=== PATIENT | female | born 1940 | race Caucasian/White ===

== ENCOUNTER 2021-07-17 08:45 | Outpatient (REF) | payer OTHER, SELFPAY ==
[2021-07-17 10:35] LABS: MANUAL DIFF FLAG NO
[2021-07-17 10:41] LABS: Basophils Absolute Auto 0.1 X10*3/uL (0.0-0.2); Basophils Percent Auto 0.8 % (0-2); Eosinophils Absolute Auto 0.4 X10*3/uL (0.0-0.4); Eosinophils Percent Auto 5.3 % (0-4); Hematocrit 39.7 % (37.0-47.0); Imm Gran Abs Auto 0.02 X10*3/uL (0.00-0.03); Imm Gran Pct Auto 0.3 % (0.0-0.4); Lymphocytes Absolute Auto 2.9 X10*3/uL (1.2-4.9); Lymphocytes Percent Auto 37.5 % (20-40); Mean Corpuscular HGB Conc 32.7 g/dl (31.0-35.0); Mean Corpuscular Hemoglobin 30.1 pg (27.0-33.0); Mean Corpuscular Volume 91.9 fL (80.0-98.0); Mean Platelet Volume 9.7 fL (9.4-12.3); Monocytes Absolute Auto 0.7 X10*3/uL (0.1-1.2); Monocytes Percent Auto 8.7 % (2-11); Neutrophils Absolute Auto 3.7 x10*3/uL (2.0-8.3); Neutrophils Percent Auto 47.4 % (45-73); Platelet Count 315 X10*3/uL (160-400); Red Blood Count 4.32 X10*6/uL (4.20-5.50); Red Cell Distribution Width 13.1 % (11.0-16.0); White Blood Count 7.7 X10*3/uL (4.8-10.8)
[2021-07-17 10:44] LABS: Appearance Urine CLEAR; Color Urine YELLOW; Glucose Urine UA NEG (NEG); Leukocyte Esterase Urine TRACE (NEG); Nitrite Urine NEG (NEG); Specific Gravity - Urine 1.015 (1.005-1.025); Urine Blood NEG (NEG); Urine Ketones NEG (NEG); Urine Protein NEG (NEG-TRACE)
[2021-07-17 10:55] LABS: Alanine Aminotransferase 14 U/L (0-31); Alkaline Phosphatase 63 U/L (39-117); Anion Gap 13 (12-20); Aspartate Amino Transferase 14 U/L (5-31); Blood Urea Nitrogen 9 mg/dL (9-16); Calcium 9.5 mg/dL (8.4-10.2); Carbon Dioxide 25 mmol/L (22-29); Chloride 106 mmol/L (96-108); Cholesterol 188 mg/dL; Estimated Glomerular Filt Rate > 60; Glucose Fasting 98 mg/dL (60-99); HDL Cholesterol 58 mg/dL; LDL Cholesterol Calculated 114 mg/dl; Potassium 4.2 mmol/L (3.3-5.1); Sodium 140 mmol/L (135-145); Squamous Epithelial Cell Urine 1+ /LPF; Total Protein 6.9 g/dL (6.5-8.0); Triglycerides 81 mg/dL
[2021-07-17 10:58] LABS: RBC Urine 0-2 /HPF (0); Renal Epithelial Cells Urine TRACE /LPF; WBC Urine 0-2 /HPF (0-4)
[2021-07-17 11:18] LABS: TSH reflex Free T4 0.32 uIU/mL (0.32-4.0)
== END 2021-07-17 08:46 | disposition home or self-care (01) ==
LOC: HO.WFDLDS 08:45
PROVIDERS: Visit Provider Family Medicine
DX: Z00.00 Encounter for general adult medical examination without abnormal findings (principal); Z13.220 Encounter for screening for lipoid disorders; Z13.29 Encounter for screening for other suspected endocrine disorder
CPT/HCPCS: 36415; 80053; 80061; 81001; 84443; 85025

== ENCOUNTER 2021-10-27 10:03 | Outpatient (REF) | payer OTHER, SELFPAY ==
[2021-10-27 11:21] LABS: MANUAL DIFF FLAG NO
[2021-10-27 11:30] LABS: Basophils Absolute Auto 0.1 X10*3/uL (0.0-0.2); Basophils Percent Auto 0.7 % (0-2); Eosinophils Absolute Auto 0.5 X10*3/uL (0.0-0.4); Eosinophils Percent Auto 5.3 % (0-4); Hematocrit 38.6 % (37.0-47.0); Hemoglobin 12.5 g/dl (12.0-16.0); Imm Gran Abs Auto 0.02 X10*3/uL (0.00-0.03); Imm Gran Pct Auto 0.2 % (0.0-0.4); Lymphocytes Absolute Auto 2.9 X10*3/uL (1.2-4.9); Lymphocytes Percent Auto 34.1 % (20-40); Mean Corpuscular HGB Conc 32.4 g/dl (31.0-35.0); Mean Corpuscular Hemoglobin 30.2 pg (27.0-33.0); Mean Corpuscular Volume 93.2 fL (80.0-98.0); Mean Platelet Volume 9.5 fL (9.4-12.3); Monocytes Absolute Auto 0.7 X10*3/uL (0.1-1.2); Neutrophils Absolute Auto 4.4 x10*3/uL (2.0-8.3); Neutrophils Percent Auto 51.7 % (45-73); Platelet Count 298 X10*3/uL (160-400); Red Blood Count 4.14 X10*6/uL (4.20-5.50); Red Cell Distribution Width 13.3 % (11.0-16.0); White Blood Count 8.5 X10*3/uL (4.8-10.8)
[2021-10-27 12:15] LABS: Alanine Aminotransferase 15 U/L (0-31); Albumin Level 3.9 g/dL (3.5-5.0); Alkaline Phosphatase 72 U/L (39-117); Anion Gap 15 (12-20); Aspartate Amino Transferase 15 U/L (5-31); Bilirubin Total 1.1 mg/dL (0.0-1.0); Blood Urea Nitrogen 14 mg/dL (9-16); Calcium 9.1 mg/dL (8.4-10.2); Carbon Dioxide 27 mmol/L (22-29); Chloride 106 mmol/L (96-108); Estimated Glomerular Filt Rate > 60; Glucose Random 94 mg/dL (60-115); Potassium 4.4 mmol/L (3.3-5.1); Sodium 144 mmol/L (135-145); Total Protein 6.6 g/dL (6.5-8.0)
[2021-10-27 12:22] LABS: Thyroid Stimulating Hormone 0.21 uIU/mL (0.32-4.0)
[2021-10-29 02:08] LABS: Triiodothyronine T3 Total 140 ng/dL (76-181)
== END 2021-10-27 10:04 | disposition home or self-care (01) ==
LOC: HO.WFDLDS 10:03
PROVIDERS: Visit Provider Family Medicine
DX: Z00.00 Encounter for general adult medical examination without abnormal findings (principal); E03.9 Hypothyroidism, unspecified; R53.83 Other fatigue
CPT/HCPCS: 36415; 80053; 84439; 84443; 84480; 85025

== ENCOUNTER 2021-11-07 09:08 | Outpatient (REF) | payer OTHER, SELFPAY ==
[2021-11-07 12:01] LABS: Anion Gap 14 (12-20); Blood Urea Nitrogen 9 mg/dL (9-16); Calcium 9.1 mg/dL (8.4-10.2); Carbon Dioxide 28 mmol/L (22-29); Chloride 107 mmol/L (96-108); Estimated Glomerular Filt Rate > 60; Glucose Random 95 mg/dL (60-115); Sodium 145 mmol/L (135-145)
[2021-11-07 12:10] LABS: Thyroid Stimulating Hormone 0.19 uIU/mL (0.32-4.0)
[2021-11-07 12:16] LABS: Folate 6.8 ng/mL (> or = 4.0); Vitamin B12 417 pg/mL (200-900)
[2021-11-07 12:44] LABS: T4 Thyroxine 8.9 ug/dL (4.5-12.0)
== END 2021-11-07 09:09 | disposition home or self-care (01) ==
LOC: HO.WFDLDS 09:08
PROVIDERS: Visit Provider Psychiatry & Neurology Neurology
DX: G31.84 Mild cognitive impairment of uncertain or unknown etiology (principal)
CPT/HCPCS: 36415; 80048; 82607; 82746; 84436; 84443

== ENCOUNTER 2021-12-03 09:24 | Outpatient (REF) | payer OTHER, SELFPAY ==
--- NOTE | ~2021-12-03 | MR_ITS ---
EXAMINATION: MR OF THE BRAIN WITHOUT CONTRAST CLINICAL INFORMATION: 81-year-old with history of CVA; self-reported head tremor when looking to left. Possible seizure. COMPARISON: None. TECHNIQUE: Multiplanar multisequence MR imaging of the brain was done without IV contrast. FINDINGS: Brain Volume: [id number] generalized diffuse parenchymal volume loss within the limitations of qualitative assessment. Structural: No malformations. Brain and Meninges: DWI sequence demonstrates no restricted diffusion to suggest acute or subacute cerebral ischemia. Scattered patchy and confluent zones of FLAIR/T2 signal hyperintensity within the subcortical and deeper periventricular white matter of both cerebral hemispheres with mild deep white matter T1 hypointensity, which are nonspecific findings but could reflect chronic ischemic microangiopathy in a patient of this age. There is a remote lacunar infarct in the ventromedial thalamus. Gradient refocused imaging demonstrates no abnormal magnetic susceptibility artifact to suggest hemorrhage, hemosiderin staining or abnormal mineralization. There is a tiny remote infarct in the left cerebellar hemisphere. Punctate T2 hyperintensity in the left cerebellar hemispheric white matter also noted, likely reflecting minimal chronic ischemic microangiopathy. Mildly prominent perivascular spaces at the level of the basal ganglia and subinsular regions bilaterally are noted. The mesial temporal lobe structures are bilaterally symmetric and are normal in signal intensity. Slight T2 hyperintensity noted in the thalami bilaterally suggesting chronic ischemic changes. No extra-axial fluid collections, significant space-occupying process or mass effect are identified. There is T2 hyperintensity along the callososeptal interface of the corpus callosum and along the deep surface of the splenium, which is likely reflective of chronic ischemic change. Ventricles and Subarachnoid Spaces: The ventricular system and subarachnoid spaces are consistent with generalized volume loss without hydrocephalus. Orbital Structures: The visualized orbital structures are grossly unremarkable within the limitations of the study. Vascular: Signal voids are noted in the visualized major intracranial vessels. Osseous Structures, Sinuses/Mastoids, Extracranial Soft Tissues: Unremarkable. MR/MR head/brain wo con IMPRESSION: 1. 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 2. No evidence for acute or subacute infarct, hemorrhage, extra-axial fluid collection, space-occupying process, mass effect or hydrocephalus. 3. Mild to moderate generalized diffuse brain parenchymal volume loss with prominence of the perivascular spaces in the deep white matter and basal ganglia bilaterally.
== END 2021-12-03 09:25 | disposition home or self-care (01) ==
LOC: HO.MRI 09:24
PROVIDERS: Visit Provider Psychiatry & Neurology Neurology
DX: I63.9 Cerebral infarction, unspecified (principal); R56.9 Unspecified convulsions
CPT/HCPCS: 70551

== ENCOUNTER 2022-02-23 12:48 | Outpatient (REF) | payer OTHER, SELFPAY ==
[2022-02-23 14:57] LABS: Free T4 (Free Thyroxine) 1.07 ng/dL (0.71-1.85); Thyroid Stimulating Hormone 0.11 uIU/mL (0.32-4.0)
[2022-02-25 13:08] LABS: Thyroid Peroxidase Antibodies <1 IU/mL (<9)
[2022-02-25 22:09] LABS: Triiodothyronine T3 Total 129 ng/dL (76-181)
== END 2022-02-23 12:49 | disposition home or self-care (01) ==
LOC: HO.WFDLDS 12:48
PROVIDERS: Visit Provider Family Medicine
DX: E03.9 Hypothyroidism, unspecified (principal); R79.89 Other specified abnormal findings of blood chemistry
CPT/HCPCS: 36415; 84439; 84443; 84480; 86376

== ENCOUNTER 2022-07-13 11:41 | Outpatient (REF) | payer OTHER, SELFPAY ==
[2022-07-13 14:56] LABS: Anion Gap 11 (12-20); Blood Urea Nitrogen 13 mg/dL (9-16); Calcium 9.1 mg/dL (8.4-10.2); Carbon Dioxide 27 mmol/L (22-29); Chloride 105 mmol/L (96-108); Estimated Glomerular Filt Rate > 60; Glucose Random 119 mg/dL (60-115); Potassium 4.3 mmol/L (3.3-5.1); Sodium 139 mmol/L (135-145)
[2022-07-13 15:18] LABS: Free T4 (Free Thyroxine) 1.01 ng/dL (0.71-1.85); Thyroid Stimulating Hormone 0.11 uIU/mL (0.32-4.0)
[2022-07-15 07:34] LABS: Triiodothyronine T3 Total 111 ng/dL (76-181)
== END 2022-07-13 11:42 | disposition home or self-care (01) ==
LOC: HO.WFDLDS 11:41
PROVIDERS: Visit Provider Family Medicine
DX: Z00.00 Encounter for general adult medical examination without abnormal findings (principal); E05.90 Thyrotoxicosis, unspecified without thyrotoxic crisis or storm; E03.9 Hypothyroidism, unspecified
CPT/HCPCS: 36415; 80048; 84439; 84443; 84480

== ENCOUNTER 2022-09-24 09:07 | Outpatient (REF) | payer OTHER, SELFPAY ==
[2022-09-24 11:33] LABS: MANUAL DIFF FLAG NO
[2022-09-24 11:54] LABS: Basophils Absolute Auto 0.1 X10*3/uL (0.0-0.2); Basophils Percent Auto 0.6 % (0-2); Eosinophils Absolute Auto 0.5 X10*3/uL (0.0-0.4); Eosinophils Percent Auto 5.1 % (0-4); Hematocrit 37.1 % (37.0-47.0); Imm Gran Abs Auto 0.03 X10*3/uL (0.00-0.03); Imm Gran Pct Auto 0.3 % (0.0-0.4); Lymphocytes Absolute Auto 3.5 X10*3/uL (1.2-4.9); Lymphocytes Percent Auto 37.5 % (20-40); Mean Corpuscular HGB Conc 32.3 g/dl (31.0-35.0); Mean Corpuscular Hemoglobin 29.9 pg (27.0-33.0); Mean Corpuscular Volume 92.5 fL (80.0-98.0); Mean Platelet Volume 9.4 fL (9.4-12.3); Monocytes Absolute Auto 0.8 X10*3/uL (0.1-1.2); Monocytes Percent Auto 8.1 % (2-11); Neutrophils Absolute Auto 4.5 x10*3/uL (2.0-8.3); Neutrophils Percent Auto 48.4 % (45-73); Platelet Count 320 X10*3/uL (160-400); Red Blood Count 4.01 X10*6/uL (4.20-5.50); Red Cell Distribution Width 13.5 % (11.0-16.0); White Blood Count 9.3 X10*3/uL (4.8-10.8)
[2022-09-24 14:11] LABS: Alanine Aminotransferase 13 U/L (0-31); Albumin Level 3.6 g/dL (3.5-5.0); Alkaline Phosphatase 73 U/L (39-117); Anion Gap 12 (12-20); Aspartate Amino Transferase 14 U/L (5-31); Bilirubin Total 0.7 mg/dL (0.0-1.0); Blood Urea Nitrogen 9 mg/dL (9-16); Calcium 9.3 mg/dL (8.4-10.2); Carbon Dioxide 27 mmol/L (22-29); Chloride 106 mmol/L (96-108); Cholesterol 129 mg/dL; Estimated Glomerular Filt Rate > 60; Glucose Random 89 mg/dL (60-115); HDL Cholesterol 58 mg/dL; LDL Cholesterol Calculated 60 mg/dl; Potassium 3.9 mmol/L (3.3-5.1); Sodium 141 mmol/L (135-145); Total Protein 6.4 g/dL (6.5-8.0); Triglycerides 56 mg/dL
[2022-09-26 08:13] LABS: LDL Cholesterol Direct 57 mg/dL (<100)
== END 2022-09-24 09:08 | disposition home or self-care (01) ==
LOC: HO.WFDLDS 09:07
PROVIDERS: Visit Provider Family Medicine
DX: Z00.00 Encounter for general adult medical examination without abnormal findings (principal); E05.90 Thyrotoxicosis, unspecified without thyrotoxic crisis or storm
CPT/HCPCS: 36415; 80053; 80061; 83721; 85025

== ENCOUNTER 2022-10-02 10:40 | Outpatient (AMB) | payer OTHER, SELFPAY ==
--- NOTE | 2022-10-02 10:47 | A.OFFPC_ITS ---
Vital Signs 10/02/22 10:57 Height 5 ft 2 in Weight 134 lb 8 oz BMI 24.6 BP 120/64 Blood Pressure Location Lt brachial Position Sitting Respiration 12 Pulse 92 Pulse Source Pulse Oximeter Temp 97.5 F Temp Source Temporal Artery Scan Pulse Oximetry (%) 97 Oxygen Delivery Method Room Air Intake Visit Reasons: CPE with f/u labs and health maintenance Intake Note: Patient would like a referral to get hearing aids. Toy Maker Required: No Accompanied by: Self / Same As Patient Allergies No Known Allergies Allergy (Verified 10/02/22 11:03) Tobacco use date assessed: 05/26/22 Fall risk assessment: No Falls in past year Last assessed Fall Risk: 10/02/22 Dental Screening Dental Screen Date: 10/02/22 Did you have a dental visit in the last 12 months?: Yes Did you have a dental problem in the last 6 months where you did not have access to dental care?: No Was dental information given to patient?: Patient has dentist HPI CPE with f/u labs and health maintenance HPI Details 82 y/o female presents for a CPE with f/u labs and health maintenance. Labs were drawn 09/24/22. Reviewed labs with pt. Triglycerides 56. TC 129. LDL direct 57. She is on artovastatin 20mg daily. HDL 58. TSH 07/13/22 was supressed. Pt states she sees her eye doctor every year. She reports she needs hearing aids - she has not had hearing testing in a long time. [facility] Medical History (Updated 10/02/22 @ 11:40 by Dyllan Lofton) Stroke Surgical History (Updated 10/02/22 @ 11:07 by Melissa Ann MA) No pertinent past surgical history Family History (Updated 10/02/22 @ 11:08 by Melissa Ann MA) Daughter Brain cancer Social History Housing: Apartment Patient Tobacco Use Status: Never used Tobacco e-Cigarette/Vaping Use: Never Used Second Hand Smoke Exposure: No service: No Current occupational status: retired Current occupational exposures/hazards: No Cognitive needs: No Hearing needs: Yes Vision needs: Yes Questionnaire Thrive Questionnaire Date Thrive assessed: 09/10/21 MARIA ELENA-7 AMB Questionnaire MARIA ELENA-7 Date MARIA ELENA - 7 assessed: 02/23/22 Source: Developed by Drs. Caio Payne, Kassie Ontiveros, Jonathon Gonzalez and colleagues, with an educational marsha from [employer]. Review of Systems Const Denies chills, Denies fatigue, Denies fever(s), Denies headache(s) and Denies weakness Eyes Denies change in vision ENT Denies dizziness, Denies headache(s), Denies hearing loss, Denies nasal congestion, Denies sinus pain, Denies sinus pressure and Denies sore throat Card Denies chest pain, Denies lightheadedness, Denies dyspnea and Denies other (palpitations) Resp Denies cough, Denies dyspnea and Denies wheezing GI Denies abdominal pain, Denies melena, Denies hematochezia, Denies change in bowel habits, Denies dyspepsia and Denies nausea Denies hematuria and Denies dysuria Musc Denies abnormal gait, Denies myalgias, Denies arthralgias, Denies numbness and Denies tingling Skin/Breast Denies rash, Denies unusual bruising and Denies wounds Neuro Denies abnormal gait, Denies dizziness, Denies headache(s), Denies memory loss, Denies numbness, Denies Sensory deficit (Neuro), Denies tingling and Denies weakness Psych Denies anxiety, Denies depression and Denies memory loss Endo Denies cold intolerance, Denies fatigue, Denies heat intolerance, Denies polydipsia and Denies polyuria Fredo/Lymph Denies easy bleeding and Denies easy bruising Aller/Immun Denies wheezing Physical exam (Primary Care) Vital Signs: Last Vital Signs Temp 97.5 F 10/02/22 10:57 Pulse 92 10/02/22 10:57 Resp 12 10/02/22 10:57 BP 120/64 10/02/22 10:57 Pulse Ox 97 10/02/22 10:57 Oxygen Delivery Method Room Air 10/02/22 10:57 BMI result Body Mass Index 24.6 Tobacco/Smoking Status: Tobacco use Status Tobacco use date assessed 05/26/22 10/02/22 10:49 Patient Tobacco Use Status Never used Tobacco 10/02/22 10:49 e-Cigarette/Vaping Use Never Used 10/02/22 10:49 Thrive Assessment: Date of Thrive Assessment Date Thrive assessed 09/10/21 10/02/22 10:49 Const General: no acute distress, well developed, alert and awake Nutritional Appearance: well nourished Orientation/consciousness: patient oriented x3 [facility] Head: Yes normocephalic and Yes atraumatic Ears: hearing grossly normal bilaterally and TM's normal bilaterally General nose exam: Normal external nose present and Normal nares present Mouth: Normal oral and palatal mucosa present and moist mucous membranes Teeth and gingiva: dentition normal Throat: Yes posterior oropharynx normal Eyes General: appearance normal, both eyes and all related structures Pupils: Equal, round and reactive pupils present and Pupil accommodation reflex normal EOM: EOMs intact bilaterally Neck Neck: Yes normal visual inspection, Yes no lymphadenopathy and Yes trachea midline Thyroid: Thyroid normal Carotids: no bruits Lymphatic: no lymphadenopathy noted Chest Chest palpation & inspection: normal inspection of the chest Resp Effort & Inspection: normal respiratory effort Auscultation: clear to auscultation bilaterally Cardio Rate: regular rate Rhythm: regular rhythm Heart sounds: S1 normal heart sound present, S2 normal heart sound present, no gallops, no murmurs and no rubs Bruits: no abdominal aortic bruits and no carotid bruits GI Palpation (GI): No Abdominal aortic bruit present, Soft to palpation, nontender, No hepatosplenomegaly present and No Rebound tenderness present Auscultation: normal bowel sounds General: Yes no CVA tenderness Back/Spine/Pelvis Back: no CVA tenderness Cervical Spine: cervical ROM normal and No Cervical spine tenderness Thoracic/Lumbar Spine: thoraco-lumbar ROM normal, No pain with thoraco-lumbar ROM, No thoracic spinal tenderness and No lumbar spinal tenderness Skin Lesions: no lesions Rashes: no rashes Trauma: no lacerations or abrasions Wounds: no wounds Nails: normal Neuro General: patient oriented x3 Cranial nerves: Yes Equal, round and reactive pupils present Cognition (Neuro): normal cognition Gait exam (Neuro): Normal gait present Motor exam (neuro): 5/5 motor strength present throughout Sensory Exam: No Sensory deficit (Neuro) Deep tendon reflexes (DTR's): Right patellar reflex intensity grade: 2+ and Left patellar reflex intensity grade: 2+ Extrem General: Yes normal to inspection and No edema Psych Appearance: grossly normal Affect: normal affect Attitude: cooperative Thought process: Normal thought process present Assessment and Plan Assessment & Plan (1) Hyperthyroidism: Code(s): E05.90 - Thyrotoxicosis, unspecified without thyrotoxic crisis or storm Plan: Subcu hyperthyroidism - suppressed TSH but her free T4 and total T3 are within normal limits and patient is asymptomatic. She declines further investigation or treatment. She declines referral to endocrinology We will continue to monitor periodically (2) Hypertension: Code(s): I10 - Essential (primary) hypertension Plan: Blood pressure is controlled. Goal is less than 130/80 Continue current blood pressure medication regimen (3) Hyperlipidemia: Code(s): E78.5 - Hyperlipidemia, unspecified Plan: She is taking atorvastatin and her lipid levels are well controlled LDL goal is less than 70 for patient with history of CVA Continue atorvastatin as prescribed (4) Hearing loss: Code(s): H91.90 - Unspecified hearing loss, unspecified ear Plan: Referred to speech and hearing for audiology testing (5) Adult general medical exam: Code(s): Z00.00 - Encounter for general adult medical examination without abnormal findin gs Plan: 82-year-old female presents for extended exam Encouraged healthy diet with active lifestyle and plenty of exercise Orders: Referrals Audiology Referral H91.90 - Unspecified hearing loss, unspecified ear Coding Level of Care Code Est Pt Level 3 (19853) Est Pt Prev Care >65y(65272) Diagnoses Hyperthyroidism E05.90 Hypertension I10 Hyperlipidemia E78.5 Hearing loss H91.90 Adult general medical exam Z00.00
[2022-10-02 10:57] VITALS: BP 120/64; PULSE 92; RESP 12; TEMP 36.4; O2SAT 97; BMI 24.6
== END 2022-10-02 11:39 | disposition home or self-care (01) ==
PROVIDERS: Visit Provider Family Medicine
DX: Z00.00 Encounter for general adult medical examination without abnormal findings (principal); E05.90 Thyrotoxicosis, unspecified without thyrotoxic crisis or storm; I10 Essential (primary) hypertension; E78.5 Hyperlipidemia, unspecified; H91.90 Unspecified hearing loss, unspecified ear
CPT/HCPCS: 99397

== ENCOUNTER 2022-10-02 10:42 | Outpatient (REF) | payer OTHER, SELFPAY ==
[2022-10-02 14:36] LABS: Appearance Urine Cloudy; Color Urine Yellow; Glucose Urine UA Negative (Negative); Leukocyte Esterase Urine Small (1+) (Negative); Nitrite Urine Negative (Negative); UMIC TRIGGER UA YES; Urine Blood Negative (Negative); Urine Ketones Negative (Negative); Urine Protein Negative (Neg-Trace)
[2022-10-02 14:55] LABS: Bacteria Urine None Seen (None Seen); Hyaline Casts Urine 0-2 /LPF (0-2); RBC Urine 0-2 /HPF (0-2); Squamous Epithelial Cell Urine 0-2 /HPF (0-2); WBC Urine 0-5 /HPF (0-5)
== END 2022-10-02 10:43 | disposition home or self-care (01) ==
LOC: HO.WFDLDS 10:42
PROVIDERS: Visit Provider Family Medicine
DX: Z00.00 Encounter for general adult medical examination without abnormal findings (principal)
CPT/HCPCS: 81001

== ENCOUNTER 2023-01-06 11:11 | Outpatient (AMB) | payer OTHER, SELFPAY ==
[2023-01-06 11:14] VITALS: BP 118/78; PULSE 82; RESP 12; O2SAT 97; BMI 23.1
--- NOTE | 2023-01-06 11:14 | MHC.PC.OV ---
Vital Signs 01/06/23 11:14 Height 5 ft 2 in Weight 126 lb 8 oz BMI 23.1 BP 118/78 Blood Pressure Location Lt brachial Position Sitting Respiration 12 Pulse 82 Pulse Source Pulse Oximeter Pulse Oximetry (%) 97 Oxygen Delivery Method Room Air Intake Visit Reasons: f/u hypertension and chronic conditions Intake Note: Patient is following up on hypertension. Patient would like her ears checked out. Allergies No Known Allergies Allergy (Verified 01/06/23 11:18) Tobacco use date assessed: 01/06/23 Fall risk assessment: No Falls in past year Last assessed Fall Risk: 01/06/23 Dental Screening Dental Screen Date: 01/06/23 Did you have a dental visit in the last 12 months?: No Did you have a dental problem in the last 6 months where you did not have access to dental care?: No Was dental information given to patient?: Patient has dentist HPI f/u hypertension and chronic conditions HPI Details Patient?presents?for?follow-up?hypertension. Taking?amlodipine?as?prescribed?without?problems. Blood?pressure?118/78 Also?following?patient's?thyroid?hormone?levels?as?her?TSH?has?been?suppressed.??She?has?declined?referral?to?endocrinology?in?the?past?but?agrees?to?surveillance. She?is?asymptomatic [facility] Medical History (Updated 10/02/22 @ 11:40 by Dyllan Lofton) Stroke Surgical History (Updated 10/02/22 @ 11:07 by Melissa Ann MA) No pertinent past surgical history Family History (Updated 10/02/22 @ 11:08 by Melissa Ann MA) Daughter Brain cancer Social History Housing: Apartment Patient Tobacco Use Status: Never used Tobacco e-Cigarette/Vaping Use: Never Used Second Hand Smoke Exposure: No service: No Current occupational status: retired Current occupational exposures/hazards: No Cognitive needs: No Hearing needs: Yes Vision needs: Yes Questionnaire Thrive Questionnaire Date Thrive assessed: 09/10/21 MARIA ELENA-7 AMB Questionnaire MARIA ELENA-7 Date MARIA ELENA - 7 assessed: 02/23/22 Source: Developed by Drs. Caio Payne, Kassie B.W. Jonathon Ontiveros and colleagues, with an educational marsha from [employer]. Review of Systems Const Denies chills, Denies fatigue, Denies fever(s), Denies headache(s) and Denies weakness ENT Denies dizziness and Denies headache(s) Card Denies chest pain, Denies lightheadedness, Denies dyspnea and Denies other (Palpitations) Resp Denies cough, Denies dyspnea, Denies wheezing and Denies other ( shortness of breath) Musc Denies numbness and Denies tingling Neuro Denies dizziness, Denies headache(s), Denies numbness, Denies tingling, Denies paresthesias and Denies weakness Psych Denies anxiety and Denies depression Endo Denies fatigue Aller/Immun Denies wheezing Physical exam (Primary Care) Vital Signs: Last Vital Signs Pulse 82 01/06/23 11:14 Resp 12 01/06/23 11:14 BP 118/78 01/06/23 11:14 Pulse Ox 97 01/06/23 11:14 Oxygen Delivery Method Room Air 01/06/23 11:14 BMI result Body Mass Index 23.1 Tobacco/Smoking Status: Tobacco use Status Tobacco use date assessed 01/06/23 01/06/23 11:26 Patient Tobacco Use Status Never used Tobacco 01/06/23 11:26 e-Cigarette/Vaping Use Never Used 01/06/23 11:26 Thrive Assessment: Date of Thrive Assessment Date Thrive assessed 09/10/21 01/06/23 11:26 Const General: no acute distress and well developed Nutritional Appearance: well nourished Orientation/consciousness: patient oriented x3 [facility] Head: Yes normocephalic and Yes atraumatic Eyes General: appearance normal, both eyes and all related structures Pupils: Equal, round and reactive pupils present EOM: EOMs intact bilaterally Resp Effort & Inspection: normal respiratory effort Auscultation: clear to auscultation bilaterally Cardio Rate: regular rate Rhythm: regular rhythm Heart sounds: S1 normal heart sound present, S2 normal heart sound present, no gallops, no murmurs and no rubs Neuro General: patient oriented x3 and gait normal Cranial nerves: Yes Equal, round and reactive pupils present Psych Affect: normal affect Assessment and Plan Assessment & Plan (1) Hypertension: Code(s): I10 - Essential (primary) hypertension Plan: Pressure?is?controlled.??Goal?is?less?than?140/90 Continue?amlodipine (2) Low TSH level: Code(s): R79.89 - Other specified abnormal findings of blood chemistry Plan: Patient?has?declined?further?workup?via?endocrinology?but?agrees?to?monitoring. Thyroid?hormone?levels?ordered?and?she?will?get?these?done?prior?to?our?next?visit. Orders: Orders Thyroid Stimulating Hormone Today E03.9 - Hypothyroidism, unspecified Free T4 (Free Thyroxine) Today E03.9 - Hypothyroidism, unspecified Basic Metabolic Panel Today R79.89 - Other specified abnormal findings of blood chemistry, Z00.00 - Encounter for general adult medical examination without abnormal findings Triiodothyronine T3 Total Today E03.9 - Hypothyroidism, unspecified Coding Level of Care Code Est Pt Level 3 (21876) Diagnoses Hypertension I10 Low TSH level R79.89
== END 2023-01-06 13:42 | disposition home or self-care (01) ==
PROVIDERS: PCP Family Medicine; Visit Provider Family Medicine
DX: I10 Essential (primary) hypertension (principal); R79.89 Other specified abnormal findings of blood chemistry
CPT/HCPCS: 99213

== ENCOUNTER 2023-02-02 10:50 | Outpatient (AMB) | payer OTHER, SELFPAY ==
[2023-02-02 11:04] VITALS: BP 120/68; PULSE 63; O2SAT 96; BMI 24.2
--- NOTE | 2023-02-02 11:04 | MHC.PC.OV ---
Vital Signs 02/02/23 11:04 Height 5 ft 2 in Weight 132 lb 8 oz BMI 24.2 BP 120/68 Blood Pressure Location Lt brachial Position Sitting Pulse 63 Pulse Source Pulse Oximeter Pulse Oximetry (%) 96 Oxygen Delivery Method Room Air Intake Visit Reasons: bleeding from rectum Intake Note: Patient is here with bleeding from rectum that comes and goes sometimes it's worse. The last time was 2 days ago. Allergies No Known Allergies Allergy (Verified 02/02/23 11:08) Tobacco use date assessed: 02/02/23 HPI bleeding from rectum HPI Details 83 y/o female presents with complaints of bleeding from rectum. She reports hx of constipation. She reports blood on toilet paper when wiping and does strain to go to the bathroom. She denies any blood in toilet. She reports blood is bright red. She has been drinking plenty of water and prune juice. [facility] Medical History Stroke Surgical History No pertinent past surgical history Family History Daughter Brain cancer Housing: Apartment Patient Tobacco Use Status: Never used Tobacco e-Cigarette/Vaping Use: Never Used Second Hand Smoke Exposure: No service: No Current occupational status: retired Current occupational exposures/hazards: No Cognitive needs: No Hearing needs: Yes Vision needs: Yes Questionnaire Thrive Questionnaire Date Thrive assessed: 09/10/21 MARIA ELENA-7 AMB Questionnaire MARIA ELENA-7 Date MARIA ELENA - 7 assessed: 02/23/22 Source: Developed by Drs. Caio Payne, Kassie Ontiveros, Jonathon Gonzalez and colleagues, with an educational marsha from [email or web address]. Review of Systems Const Denies chills, Denies fatigue, Denies fever(s), Denies headache(s) and Denies weakness ENT Denies dizziness and Denies headache(s) Card Denies dyspnea Resp Denies cough, Denies dyspnea, Denies wheezing and Denies other (shortness of breath) Musc Denies numbness and Denies tingling Neuro Denies dizziness, Denies headache(s), Denies numbness, Denies tingling and Denies weakness Psych Denies anxiety and Denies depression Endo Denies fatigue Aller/Immun Denies wheezing Physical exam (Primary Care) Vital Signs: Last Vital Signs Pulse 63 02/02/23 11:04 BP 120/68 02/02/23 11:04 Pulse Ox 96 02/02/23 11:04 Oxygen Delivery Method Room Air 02/02/23 11:04 BMI result Body Mass Index 24.2 Tobacco/Smoking Status: Tobacco use Status Tobacco use date assessed 02/02/23 02/02/23 11:09 Patient Tobacco Use Status Never used Tobacco 02/02/23 11:09 e-Cigarette/Vaping Use Never Used 02/02/23 11:09 Thrive Assessment: Date of Thrive Assessment Date Thrive assessed 09/10/21 02/02/23 11:09 Const General: well developed; No acute distress Nutritional Appearance: well nourished Orientation/consciousness: patient oriented x3 [facility] Head: Yes normocephalic and Yes atraumatic Eyes General: appearance normal, both eyes and all related structures Pupils: Equal, round and reactive pupils present EOM: EOMs intact bilaterally Resp Effort & Inspection: normal respiratory effort Neuro General: patient oriented x3 and gait normal Cranial nerves: Yes Equal, round and reactive pupils present Psych Affect: normal affect Assessment and Plan Assessment & Plan (1) Hemorrhoids: Code(s): K64.9 - Unspecified hemorrhoids Plan: Intermittent?BRBPR?with?blood?only?on?TTP External?hemorrhoids?visualized.??No?internal?hemorrhoids?appreciated?digital?rectal?exam No?fissures Likely?irritated?hemorrhoids.??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 Continue?good?hydration She?can?use?MiraLax?x3?days?and?then FiberCon. Can?also?continue?prune?juice Check?CBC If?bleeding?returns/persists,?will?refer?to?GI Orders: Orders Complete Blood Count Auto Diff Today Z00.00 - Encounter for general adult medical examination without abnormal findings Medications: New polyethylene glycol 3350 (Miralax) 17 grams PO DAILY 3 ea 0RF 3 days calcium polycarbophil (FiberCon) 625 mg PO DAILY 30 tabs 2RF 30 days Coding Level of Care Code Est Pt Level 3 (24264) Diagnoses Hemorrhoids K64.9
== END 2023-02-02 11:47 | disposition home or self-care (01) ==
PROVIDERS: PCP Family Medicine; Visit Provider Family Medicine
DX: K64.9 Unspecified hemorrhoids (principal)
CPT/HCPCS: 99213

== ENCOUNTER 2023-04-14 11:06 | Outpatient (AMB) | payer OTHER, SELFPAY ==
--- NOTE | 2023-04-14 11:28 | A.OFFPC_ITS ---
Vital Signs 04/14/23 11:29 Height 5 ft 2 in Weight 133 lb 2 oz BMI 24.3 BP 122/64 Blood Pressure Location Lt brachial Position Sitting Pulse 75 Pulse Source Pulse Oximeter Pulse Oximetry (%) 99 Oxygen Delivery Method Room Air Intake Visit Reasons: f/u hypertension,low tsh, chronic conditions Intake Note: Patient is here with hypertension, low tsh, and other chronic conditions. Allergies No Known Allergies Allergy (Verified 04/14/23 11:30) Tobacco use date assessed: 04/14/23 Fall risk assessment: No Falls in past year Last assessed Fall Risk: 04/14/23 Dental Screening Dental Screen Date: 04/14/23 Did you have a dental visit in the last 12 months?: Yes Did you have a dental problem in the last 6 months where you did not have access to dental care?: No Was dental information given to patient?: Patient has dentist HPI f/u hypertension,low tsh, chronic conditions HPI Details 83 y/o female presents to f/u hypertensi on, low TSH, chronic conditions. Blood pressure today 122/64. She is on amlodipine 2.5mg daily. [facility] Medical History Stroke Surgical History No pertinent past surgical history Family History Daughter Brain cancer Social History Housing: Apartment Patient Tobacco Use Status: Never used Tobacco e-Cigarette/Vaping Use: Never Used Second Hand Smoke Exposure: No service: No Current occupational status: retired Current occupational exposures/hazards: No Cognitive needs: No Hearing needs: Yes Vision needs: Yes Questionnaire PHQ-9 Over the last 2 weeks, how often have you been bothered by any of the following problems? 1. Little interest or pleasure in doing things: not at all 2. Feeling down, depressed, or hopeless: not at all 3. Trouble falling or staying asleep, or sleeping too much: not at all 4. Feeling tired or having little energy: not at all 5. Poor appetite or overeating: not at all 6. Feeling bad about yourself - or that you are a failure or have let yourself or your family down: not at all 7. Trouble concentrating on things, such as reading the newspaper or watching television: not at all 8. Moving or speaking so slowly that other people could have noticed. Or the opposite - being so fidgety or restless that you have been moving around a lot more than usual: not at all 9. Thoughts that you would be better off or of hurting yourself in some way: not at all Total score: 0 Source: Developed by Drs. Caio Payne, Kassie Ontiveros, Jonathon Gonzalez and colleagues, with an educational marsha from [employer]. Thrive Questionnaire Date Thrive assessed: 09/10/21 MARIA ELENA-7 AMB Questionnaire MARIA ELENA-7 Date MARIA ELENA - 7 assessed: 04/14/23 Feeling nervous, anxious, or on edge: 0 = Not at all Not being able to stop or control worryin = Not at all Worrying too much about different things: 0 = Not at all Trouble relaxin = Not at all Being so restless that it is hard to sit still: 0 = Not at all Becoming easily annoyed or irritable: 0 = Not at all Feeling afraid as if something awful might happen: 0 = Not at all Total MARIA ELENA-7 score (0-4 normal; 5-9 mild; 10-14 moderate; 15-21 severe): 0 Source: Developed by Drs. Caio Payne, Kassie Ontiveros, Jonathon Gonzalez and colleagues, with an educational marsha from [employer]. Review of Systems Const Denies chills, Denies fatigue, Denies fever(s), Denies headache(s) and Denies weakness ENT Denies dizziness and Denies headache(s) Card Denies chest pain, Denies lightheadedness, Denies dyspnea and Denies other ( Palpitations) Resp Denies cough, Denies dyspnea, Denies wheezing and Denies other ( shortness of breath) Musc Denies numbness and Denies tingling Neuro Denies dizziness, Denies headache(s), Denies numbness, Denies tingling, Denies paresthesias and Denies weakness Psych Denies anxiety and Denies depression Endo Denies fatigue Aller/Immun Denies wheezing Physical exam (Primary Care) Vital Signs: Last Vital Signs Pulse 75 04/14/23 11:29 BP 122/64 04/14/23 11:29 Pulse Ox 99 04/14/23 11:29 Oxygen Delivery Method Room Air 04/14/23 11:29 BMI result Body Mass Index 24.3 Tobacco/Smoking Status: Tobacco use Status Tobacco use date assessed 04/14/23 04/14/23 11:33 Patient Tobacco Use Status Never used Tobacco 04/14/23 11:33 e-Cigarette/Vaping Use Never Used 04/14/23 11:33 PHQ-9: PHQ-9 Score PHQ-9: Total score 0 04/14/23 12:01 Thrive Assessment: Date of Thrive Assessment Date Thrive assessed 09/10/21 04/14/23 11:33 Const General: no acute distress and well developed Nutritional Appearance: well nourished Orientation/consciousness: patient oriented x3 HENMT Head: Yes normocephalic and Yes atraumatic Eyes General: appearance normal, both eyes and all related structures Pupils: Equal, round and reactive pupils present EOM: EOMs intact bilaterally Resp Effort & Inspection: normal respiratory effort Auscultation: clear to auscultation bilaterally Cardio Rate: regular rate Rhythm: regular rhythm Heart sounds: S1 normal heart sound present, S2 normal heart sound present, no gallops, no murmurs and no rubs Neuro General: patient oriented x3 and gait normal Cranial nerves: Yes Equal, round and reactive pupils present Psych Affect: normal affect Assessment and Plan Assessment & Plan (1) Hypertension: Code(s): I10 - Essential (primary) hypertension Plan: Blood?pressure?is?well?controlled.??Goal?is?less?than?130/80 Continue?amlodipine (2) Low TSH level: Code(s): R79.89 - Other specified abnormal findings of blood chemistry Plan: Patient?notes?that?her?TSH?level?has?been?off?since?her?stroke Will?recheck?this.??If?stable,?she?does?not?want?to?do?anything?about She?can?get?her?blood?work?done?today?and?we?can?advise?her. (3) Tremor: Code(s): R25.1 - Tremor, unspecified Plan: Chronic?tremor. Stable Coding Level of Care Code Est Pt Level 3 (50659) Diagnoses Hypertension I10 Low TSH level R79.89 Tremor R25.1
[2023-04-14 11:29] VITALS: BP 122/64; PULSE 75; O2SAT 99; BMI 24.3
== END 2023-04-14 12:47 | disposition home or self-care (01) ==
PROVIDERS: PCP Family Medicine; Visit Provider Family Medicine
DX: I10 Essential (primary) hypertension (principal); R79.89 Other specified abnormal findings of blood chemistry; R25.1 Tremor, unspecified
CPT/HCPCS: 99213

== ENCOUNTER 2023-04-14 12:38 | Outpatient (REF) | payer OTHER, SELFPAY ==
[2023-04-14 14:38] LABS: MANUAL DIFF FLAG NO
[2023-04-14 14:44] LABS: Basophils Absolute Auto 0.1 X10*3/uL (0.0-0.2); Basophils Percent Auto 0.8 % (0-2); Eosinophils Absolute Auto 0.3 X10*3/uL (0.0-0.4); Hemoglobin 12.7 g/dl (12.0-16.0); Imm Gran Abs Auto 0.02 X10*3/uL (0.00-0.03); Imm Gran Pct Auto 0.2 % (0.0-0.4); Lymphocytes Absolute Auto 2.7 X10*3/uL (1.2-4.9); Mean Corpuscular HGB Conc 32.6 g/dl (31.0-35.0); Mean Corpuscular Hemoglobin 29.9 pg (27.0-33.0); Mean Corpuscular Volume 91.8 fL (80.0-98.0); Mean Platelet Volume 9.6 fL (9.4-12.3); Monocytes Absolute Auto 0.8 X10*3/uL (0.1-1.2); Neutrophils Absolute Auto 5.8 x10*3/uL (2.0-8.3); Platelet Count 303 X10*3/uL (160-400); Red Blood Count 4.25 X10*6/uL (4.20-5.50); Red Cell Distribution Width 14.3 % (11.0-16.0); White Blood Count 9.7 X10*3/uL (4.8-10.8)
[2023-04-14 15:45] LABS: Anion Gap 10 (12-20); Blood Urea Nitrogen 12 mg/dL (9-16); Calcium 9.4 mg/dL (8.4-10.2); Carbon Dioxide 28 mmol/L (22-29); Chloride 107 mmol/L (96-108); Estimated Glomerular Filt Rate > 60; Glucose Random 92 mg/dL (60-115); Potassium 4.3 mmol/L (3.3-5.1); Sodium 141 mmol/L (135-145)
[2023-04-14 15:56] LABS: Free T4 (Free Thyroxine) 1.08 ng/dL (0.71-1.85); Thyroid Stimulating Hormone 0.04 uIU/mL (0.32-4.0)
[2023-04-15 15:08] LABS: Triiodothyronine T3 Total 143 ng/dL (76-181)
== END 2023-04-14 12:39 | disposition home or self-care (01) ==
LOC: HO.WFDLDS 12:38
PROVIDERS: Visit Provider Family Medicine
DX: Z00.00 Encounter for general adult medical examination without abnormal findings (principal); E03.9 Hypothyroidism, unspecified; R79.89 Other specified abnormal findings of blood chemistry
CPT/HCPCS: 36415; 80048; 84439; 84443; 84480; 85025

== ENCOUNTER 2023-05-07 11:13 | Outpatient (AMB) | payer OTHER, SELFPAY ==
--- NOTE | 2023-05-07 11:24 | MHC.PC.OV ---
Vital Signs 05/07/23 11:26 Height 5 ft 2 in Weight 133 lb BMI 24.3 BP 142/67 H Blood Pressure Location Lt brachial Position Sitting Respiration 12 Pulse 85 Pulse Source Pulse Oximeter Temp 97.7 F Temp Source Temporal Artery Scan Pulse Oximetry (%) 96 Oxygen Delivery Method Room Air Intake Visit Reasons: ear wax removal Intake Note: Patient reports bilateral ear blockage without pain. L ear is fully blocked. Planning Associate Required: No Accompanied by: Self / Same As Patient Allergies No Known Allergies Allergy (Verified 05/07/23 11:36) Tobacco use date assessed: 04/14/23 HPI HPI Comments History of Present Illness Details Here today with complaints of hearing loss bilat, reports it is worse on the left side. This has been present for a few months. She wonders if it is wax. Has been cleaning the areas out at home and reports no wax has been able to be removed. She has not tried any other at home treatments Chart reviewed looks like she has been referred to audiology at [facility] twice. She reports she has not been able to make the appointments due to transportation issues. These referrals date back to 2022. [facility] Medical History Stroke Surgical History No pertinent past surgical history Family History Daughter Brain cancer Social History Housing: Apartment Patient Tobacco Use Status: Never used Tobacco e-Cigarette/Vaping Use: Never Used Second Hand Smoke Exposure: No service: No Current occupational status: retired Current occupational exposures/hazards: No Cognitive needs: No Hearing needs: Yes Vision needs: Yes Questionnaire Thrive Questionnaire Date Thrive assessed: 09/10/21 MARIA ELENA-7 AMB Questionnaire MARIA ELENA-7 Date MARIA ELENA - 7 assessed: 04/14/23 Source: Developed by Drs. Caio Payne, Kassie Ontiveros, Jonathon Gonzalez and colleagues, with an educational marsha from [employer]. Review of Systems Const All systems reviewed & are unremarkable except as noted in HPI and below Physical exam (Primary Care) Vital Signs: Last Vital Signs Temp 97.7 F 05/07/23 11:26 Pulse 85 05/07/23 11:26 Resp 12 05/07/23 11:26 BP 142/67 H 05/07/23 11:26 Pulse Ox 96 05/07/23 11:26 Oxygen Delivery Method Room Air 05/07/23 11:26 BMI result Body Mass Index 24.3 Tobacco/Smoking Status: Tobacco use Status Tobacco use date assessed 04/14/23 05/07/23 11:32 Patient Tobacco Use Status Never used Tobacco 05/07/23 11:32 e-Cigarette/Vaping Use Never Used 05/07/23 11:32 Thrive Assessment: Date of Thrive Assessment Date Thrive assessed 09/10/21 05/07/23 11:32 Const Other: Awake alert oriented accompanied by self EAC clear bilat, TM intact and clear bilat Assessment and Plan Assessment & Plan (1) Hearing loss, bilateral: Comment: Benign exam today. Referred to ENT and [facility]. I have asked her to call to schedule this appointment herself with her transportation to make an appointment that she is able to attend. Code(s): H91.93 - Unspecified hearing loss, bilateral Qualifiers: Hearing loss type: unspecified Qualified Code(s): H91.93 - Unspecified hearing loss, bilateral Plan This note is constructed using voice recognition software. While every effort has been made to ensure accuracy in engineering technical analyst, still errors may have been included Sometimes, these errors may affect the content or meaning of the given sentence . Orders: Referrals Ear/Nose/Throat Referral H91.93 - Unspecified hearing loss, bilateral Coding Level of Care Code Est Pt Level 3 (80525) Diagnoses Bilateral hearing loss, unspecified hearing loss type H91.93 Hearing loss type: unspecified
[2023-05-07 11:26] VITALS: BP 142/67; PULSE 85; RESP 12; TEMP 36.5; O2SAT 96; BMI 24.3
== END 2023-05-07 11:46 | disposition home or self-care (01) ==
PROVIDERS: PCP Family Medicine; Visit Provider Nurse Practitioner Family
DX: H91.93 Unspecified hearing loss, bilateral (principal)
CPT/HCPCS: 99213

== ENCOUNTER 2023-05-19 10:44 | Outpatient (AMB) | payer OTHER, SELFPAY ==
--- NOTE | 2023-05-19 10:45 | MHC.PC.OV ---
Intake Visit Reasons: f/u TSH levels Intake Note: Patient is here to follow up on TSH levels Internetworking Technician Required: No Allergies No Known Allergies Allergy (Verified 05/19/23 10:47) Tobacco use date assessed: 05/19/23 Fall risk assessment: No Falls in past year Last assessed Fall Risk: 05/19/23 HPI f/u TSH levels HPI Details 83 y/o female presents to f/u TSH levels via telemedicine. Labs were drawn 04/14/23. Reviewed labs with pt. TSH level 0.04. Pt declines going to an rd project manager. Pt reports ongoing hearing changes and would like a hearing aid. Had been referred to ENT but she notes ENT has not contacted her yet. [facility] Medical History Stroke Surgical History No pertinent past surgical history Family History Daughter Brain cancer Social History Housing: Apartment Patient Tobacco Use Status: Never used Tobacco e-Cigarette/Vaping Use: Never Used Second Hand Smoke Exposure: No service: No Current occupational status: retired Current occupational exposures/hazards: No Cognitive needs: No Hearing needs: Yes Vision needs: Yes Questionnaire Thrive Questionnaire Date Thrive assessed: 09/10/21 AUDIT C Alcohol Use Questionnaire (AUDIT-C) 1. How often do you have a drink containing alcohol?: Never 3. How often do you have six or more drinks on one occasion?: Never Total Score: 0 MARIA ELENA-7 AMB Questionnaire MARIA ELENA-7 Date MARIA ELENA - 7 assessed: 04/14/23 Source: Developed by Drs. Caio Payne, Kassie Ontiveros, Jonathon Gonzalez and colleagues, with an educational marsha from [employer]. Physical exam (Primary Care) Tobacco/Smoking Status: Tobacco use Status Tobacco use date assessed 05/19/23 05/19/23 10:47 Patient Tobacco Use Status Never used Tobacco 05/19/23 10:47 e-Cigarette/Vaping Use Never Used 05/19/23 10:47 Thrive Assessment: Date of Thrive Assessment Date Thrive assessed 09/10/21 05/19/23 10:47 Telehealth Telehealth Location of provider rendering services: practice address Location of patient: address on file Patient Identification confirmed using: Name, : Yes Telehealth method: voice only Patient verbally consented to treatment: Yes Patient verbally consented to billing insurance company: Yes Patient informed of any privacy concerns related to visit: Yes Minutes spent on Phone/Video with Pt.: 5 Assessment and Plan Assessment & Plan (1) Low TSH level: Code(s): R79.89 - Other specified abnormal findings of blood chemistry Plan: TSH?is?suppressed?but?T4?and?T3?are?within?normal?range. Patient?declines?to?do?anything?about?this. She?does?agree?to?discuss?with?her?son. (2) Hearing loss, bilateral: Code(s): H91.93 - Unspecified hearing loss, bilateral Qualifiers: Hearing loss type: unspecified Qualified Code(s): H91.93 - Unspecified hearing loss, bilateral Plan: Patient?has?noted?a?decrease?in?her?hearing?lately. She?had?been?seen?by?KO?at?the?walk-in?and?has?been?referred?to?ENT.??She?has?not?received?a?call?from?ENT?yet?so?I?gave?her?their?phone?number. Will?ask?the?office?to?check?on?status?of?referral?as?well. Coding Level of Care Code Tele Est Pt Level 2 (17933) Diagnoses Low TSH level R79.89 Bilateral hearing loss, unspecified hearing loss type H91.93 Hearing loss type: unspecified
== END 2023-05-19 17:00 ==
LOC: HO.HMGFM 10:45
PROVIDERS: PCP Family Medicine; Visit Provider Family Medicine
DX: R79.89 Other specified abnormal findings of blood chemistry (principal); H91.93 Unspecified hearing loss, bilateral
CPT/HCPCS: 99212